=== PATIENT | male | born 1960 | race Caucasian/White ===

== ENCOUNTER 2016-10-02 06:40 | Inpatient (IN) | payer MEDICARE ==
[2016-10-02] VITALS (13 sets, daily range): BP systolic 108–150; BP diastolic 68–97
[~2016-10-02] VITALS: Ht 166.4 cm; Wt 108.9 kg
[~2016-10-02 06:40] MED LIST: ASPI1TAB55 PO; ATEN50TA PO; CITA20TA5 PO; GLUC1CAP57 PO; INSU100C4 SQ; INSU100V8 SQ; LEVO200T5 PO; LEVO750T31 PO; LISI-334 PO; METR500T8 PO; MULT-658 PO; PREG150C PO; SIMV20TA3 PO
[2016-10-02] MEDS ORDERED: PROAIR HFA8.5 GM INH (07:25)
[2016-10-02] MEDS ORDERED: CITA20TA9 PO (07:25)
[2016-10-02] MEDS ORDERED: LEVO200T5 PO (07:25)
[2016-10-02 07:49] LABS: HEMATOCRIT 49.3 % (39.0-53.0); HEMOGLOBIN 16.8 g/dL (13.0-17.5); RED BLOOD COUNT 5.15 x10^6/uL (4.30-5.70); WHITE BLOOD COUNT 12.5 x10^3/uL (4.0-11.0)
[2016-10-02 08:01] LABS: PROTHROMBIN TIME PATIENT 12.5 SEC (11.7-14.0)
[2016-10-02 08:33] LABS: CREATININE 1.4 mg/dL (0.7-1.3); GFR 52.2; POTASSIUM 4.3 mmol/L (3.5-5.1)
[2016-10-02] MEDS ORDERED: ASPI-630 PO (08:46)
[2016-10-02] MEDS ORDERED: HEPARIN for ARTERIAL LINE 1,500 ML ONE (08:48)
[2016-10-02] MEDS ORDERED: LIDOCAINE 2% 20 ML VIAL. ONE (08:48)
[2016-10-02] MEDS ORDERED: IODIXANOL 320 MG/ML 100 ML VIAL. ONE ×2 (08:48→09:43)
[2016-10-02] MEDS ORDERED: MIDAZOLAM HCL/PF 5 MG/5 ML VIAL. ONE (09:08)
[2016-10-02] MEDS ORDERED: fentaNYL PF VIAL 250 MCG/5 ML VIAL ONE (09:08)
[2016-10-02] MEDS ORDERED: MIDAZOLAM HCL/PF 5 MG/5 ML VIAL. IV ONE (09:30)
[2016-10-02] MEDS ORDERED: fentaNYL PF VIAL 250 MCG/5 ML VIAL IV ONE (09:30)
[2016-10-02] MEDS ORDERED: LIDOCAINE 2% 20 ML VIAL. IJ ONE (09:30)
[2016-10-02] MEDS ORDERED: IODIXANOL 320 MG/ML 100 ML VIAL. IART ONE (09:30)
[2016-10-02] MEDS ORDERED: HEPARIN for IV BOLUS 10,000 UNIT/10 ML VIAL. ONE (09:54)
[2016-10-02] MEDS ORDERED: TIROFIBAN 12.5MG -0.9% NS 250 ML IV ONE ×2 (10:10→10:15)
[2016-10-02] MEDS ORDERED: NITROGLYCERIN 200 MCG/2 ML SYRINGE FOR CATH/VASC LAB. IART ONE (10:15)
[2016-10-02] MEDS ORDERED: HEPARIN for IV BOLUS 10,000 UNIT/10 ML VIAL. IV ONE (10:15)
[2016-10-02] MEDS ORDERED: PRASUGREL 10 MG TABLET. PO ONE (10:30)
[2016-10-02] MEDS ORDERED: INSULIN ASPART 300 UNITS/3 ML INSULN.PEN SQ SCH (12:15)
--- NOTE | 2016-10-02 16:49 | CARD ---
APPROVED REPORT Procedure(s) performed: Moderate sedation: 100 min Left heart cath with coronary angiogram PCI of the LAD HISTORY The patient is a 56 year-old male with a history of : diabetes mellitus with treatment, tobacco histo ry() , hypertension, dyslipidemia. INDICATION The indication(s) include : unstable angina . PROCEDURE NARRATIVE After appropriate informed consent the patient was brought to the catheterization laboratory and plac ed in the supine position. The left groin was prepped and draped in usual sterile fashion. Under 2% l idocaine local anesthesia after conscious sedation a 5 [place] sheath was placed in the left common fe moral artery via the modified Seldinger technique. Right and left coronary angiography was performed with a JL4 and JR4 catheter. Findings: Aorta: 120/82 LVEDP: 10 Coronary angiography: The left main is very short caliber vessel with near separate ostia of the LAD and circumflex. The left anterior dissenting artery is a moderate to large caliber vessel with a proximal to mid 50-7 0% stenosis. There is also an apical 50% stenosis noted. The first diagonal is a moderate caliber vessel without any significant disease The circumflex is a large caliber dominant vessel with a mid 30% stenosis. First obtuse marginal is a large caliber vessel with no significant disease The left posterior descending artery is a large caliber vessel with mild diffuse irregularities. Interventional technique: Due to the patient's symptoms of unstable angina he underwent a functional study to assess for ischem ia of the left injured setting artery territory in light of his moderate to severe disease. The left- sided 5 [place] sheath was then exchanged for a 6 [place] sheath over a J-tipped guidewire. Heparin was used frantic regulation to achieve and maintain an ACT greater than 200. Through a JL4 guide cathete r a 0.014 inch Trac Emc [employer] Safety pressure wire was advanced to the distal LAD. Initial IFR measurement was note d to be 0.86. Given the positive nature of this study and intervention was performed on the LAD. Ball oon angioplasty of the proximal LAD was performed with a 2.5 x 50 mm balloon. The lesion was then ed nted with a 3.0 x 15 mm drug-eluting stent. Post stent insertion a repeat IFR measurement was persist ently 0.86 suggestive of more distal stenosis and therefore a 3.0 x 28 mm stent was then deployed in overlapping fashion across the mid LAD. Repeat IFR measurement was normalized to 0.95. The overlap se gment and the proximal aspect of the LAD stent was angioplastied with a noncompliant 3.5 x 15 mm ball oon. The patient tolerated the procedure well. The left groin was then closed with a 6 [place] Angio-S eal device. The patient received 60 mg of Effient at case completion. Conclusion 1. One-vessel coronary artery disease involving the proximal to mid LAD. 2. Positive functional study with a IFR measurement of 0.86 across the proximal to mid LAD. 3. Successful PCI of the proximal to mid LAD with overlapping Xience 3.0 x 15 and 28 mm, post-dilated to 3.5 mm size. Recommendations ASA 81mg daily Prasugrel 10mg daily and then transition to Plavix 75mg daily Cardiac rehab referral.
[2016-10-02] MEDS: INSULIN ASPART 300 UNITS/3 ML INSULN.PEN SQ SCH (17:28)
[2016-10-02] MEDS ORDERED: INSULIN DETEMIR 300 UNITS/3 ML INSULN.PEN. SQ SCH (21:00)
[2016-10-03 03:05] VITALS: BP 95/67
[2016-10-03 07:00] VITALS: BP 94/64
[2016-10-03] MEDS ORDERED: LEVOTHYROXINE 100 MCG TABLET PO SCH (07:00)
[2016-10-03] MEDS: INSULIN ASPART 300 UNITS/3 ML INSULN.PEN SQ SCH (08:39)
[2016-10-03] MEDS ORDERED: CITALOPRAM 20 MG TABLET. PO SCH (09:00)
[2016-10-03] MEDS ORDERED: ASPIRIN CHEWABLE 81 MG TABLET. PO SCH (09:00)
[2016-10-03] MEDS ORDERED: ATENOLOL 50 MG TABLET. PO SCH (09:00)
[2016-10-03] MEDS ORDERED: PRAS10TA9 PO (10:38)
--- NOTE | 2016-10-03 10:44 | DISCH ---
DISCHARGE INSTRUCTIONS Condition on Discharge Condition on Discharge: Stable Activity After Discharge Activity Instructions for Disc: Activity as tolerated, Avoid exertion Bathing Instructions: Shower-keep dressing dry Lifting Instructions after Dis: No heavy lifting, No pulling or pushing, Do not lift >10 pounds Driving Instructions after Dis: Do not drive (4-5 days ) Diet after Discharge Diet after Discharge: Cardiac Contacting the DRDevin after DC Call your doctor for: Concerns you may have ALIDA BOO APRN Oct 03, 2016 10:44
[2016-10-03] MEDS ORDERED: PRASUGREL 10 MG TABLET. PO SCH (11:00)
--- NOTE | 2016-10-03 15:50 | PDOC3 ---
ALIDA BOO DIESEL ROLLER OPERATOR 10/03/16 1550: Discharge Summary Visit Information Date of Admission: Oct 02, 2016 Date of Discharge: Oct 03, 2016 Admitting Diagnosis: Unstable angina Final Diagnosis Coronary artery disease Brief Hospital Course Allergies Allergies Coded Allergies Type Severity Reaction Last Updated Verified No Known Drug Allergies 09/11/14 No Vital Signs Vital Signs Date Time Temp Pulse Resp B/P (MAP) Pulse Ox O2 Delivery O2 Flow Rate FiO2 10/03/16 08:37 72 10/03/16 08:00 Room Air 10/03/16 07:00 97.7 18 94/64 (74) 93 97.7 10/02/16 10:58 2.0 Lab Results Laboratory Tests Test 10/02/16 07:45 10/02/16 11:51 10/02/16 16:30 10/02/16 20:58 White Blood Count 12.5 x10^3/uL (4.0-11.0) Red Blood Count 5.15 x10^6/uL (4.30-5.70) Hemoglobin 16.8 g/dL (13.0-17.5) Hematocrit 49.3 % (39.0-53.0) Mean Corpuscular Volume 96 fL (79-100) Mean Corpuscular Hemoglobin 33 pg (25-35) Mean Corpuscular Hemoglobin Concent 34 g/dL (31-37) Red Cell Distribution Width 14.0 % (11.5-14.5) Platelet Count 267 x10^3/uL (140-400) Prothrombin Time 12.5 SEC (11.7-14.0) Prothromb Time International Ratio 1.0 (0.8-1.1) Activated Partial Thromboplast Time 30 SEC (24-38) Sodium Level 134 mmol/L (136-145) Potassium Level 4.3 mmol/L (3.5-5.1) Chloride Level 97 mmol/L (98-107) Carbon Dioxide Level 30 mmol/L (21-32) Anion Gap 7 (6-14) Blood Urea Nitrogen 26 mg/dL (8-26) Creatinine 1.4 mg/dL (0.7-1.3) Estimated GFR (Cockcroft-Gault) 52.2 Glucose Level 296 mg/dL (70-99) Calcium Level 10.0 mg/dL (8.5-10.1) Glucose (Fingerstick) 277 mg/dL (70-99) 266 mg/dL (70-99) 267 mg/dL (70-99) Test 10/03/16 07:25 Glucose (Fingerstick) 135 mg/dL (70-99) Laboratory Tests Test 10/02/16 16:30 10/02/16 20:58 10/03/16 07:25 Glucose (Fingerstick) 266 mg/dL (70-99) 267 mg/dL (70-99) 135 mg/dL (70-99) Brief Hospital Course Mr. Arzate is a 56 old male who presented secondary to unstable angina. Brought electively to the catheterization laboratory. Cath revealed one-vessel coronary artery disease involving the proximal to mid LAD. Patient underwent successful PCI of the proximal to mid LAD with overlapping Xience 3.0 x 15 and 28 mm, post- dilated to 3.5 mm size. Tolerated well. Monitored overnight. No acute events noted overnight on telemetry. Lungs CTA. Left groin arteriotomy site soft, clean , and dry without erythema or ecchymosis. LLE neurovascular status intact. Initiated on DAPT with ASA and Effient with plan to transition to ASA and Plavix in one month. Patient to follow up in our office with Dr. Beard in 4 weeks. Discharge Information Condition at Discharge: Stable Follow Up: Weeks (4) Disposition/Orders: D/C to Home Scheduled Aspirin (Aspirin), 1 TAB PO DAILY, (Reported) Atenolol (Atenolol), 1 TAB PO DAILY, (Reported) Citalopram Hydrobromide (Celexa), 1 TAB PO DAILY, (Reported) Insulin Aspart (Novolog), 35 UNIT SQ TIDAC, (Reported) Insulin Glargine,Hum.rec.anlog (Lantus), 30 UNIT SQ HS, (Reported) Levothyroxine Sodium (Levothyroxine Sodium), 1 TAB PO DAILY, (Reported) Prasugrel Hcl (Effient), 1 TAB PO DAILY Simvastatin (Simvastatin), 1 TAB PO QHS, (Reported) Scheduled PRN Albuterol Sulfate (Proair Hfa Inhaler), 1 PUFF INH PRN Q6HRS PRN for SHORTNESS OF BREATH, (Reported) Miscellaneous Medications Aspirin/Sod Bicarb/Citric Acid (Katie-Monona Original Tab Eff), 1 EACH PO, ( Reported) Multivits-Min/Fa/Lycopene/Lut (Centrum Silver Tablet), 1 EACH PO, (Reported) Discontinued Medications Levofloxacin (Levaquin), 750 MG PO BID, (Reported) Levothyroxine Sodium (Levothyroxine Sodium), 1 TAB PO DAILY, (Reported) Lisinopril (Lisinopril), 1 TAB PO DAILY, (Reported) Metronidazole (Metronidazole), 500 MG PO TID, (Reported) Pregabalin (Lyrica), 1 CAP PO BID, (Reported) BLAIR BEARD MD 10/03/16 2509: Discharge Summary Brief Hospital Course Brief Hospital Course Pt. seen and examined. Agree with above MEDICAL TRANSCRIPTIONIST note. No acute events overnight. L groin site is c/d/i. Tolerating medical therapy Discussed with patient's family. Ok to DC with f/u in 4 weeks for lower extremity angiography for further evaluation of claudication. Discharge Information Scheduled Aspirin (Aspirin), 1 TAB PO DAILY, (Reported) Atenolol (Atenolol), 1 TAB PO DAILY, (Reported) Citalopram Hydrobromide (Celexa), 1 TAB PO DAILY, (Reported) Insulin Aspart (Novolog), 35 UNIT SQ TIDAC, (Reported) Insulin Glargine,Hum.rec.anlog (Lantus), 30 UNIT SQ HS, (Reported) Levothyroxine Sodium (Levothyroxine Sodium), 1 TAB PO DAILY, (Reported) Prasugrel Hcl (Effient), 1 TAB PO DAILY Simvastatin (Simvastatin), 1 TAB PO QHS, (Reported) Scheduled PRN Albuterol Sulfate (Proair Hfa Inhaler), 1 PUFF INH PRN Q6HRS PRN for SHORTNESS OF BREATH, (Reported) Miscellaneous Medications Aspirin/Sod Bicarb/Citric Acid (Katie-Monona Original Tab Eff), 1 EACH PO, ( Reported) Multivits-Min/Fa/Lycopene/Lut (Centrum Silver Tablet), 1 EACH PO, (Reported) Discontinued Medications Levofloxacin (Levaquin), 750 MG PO BID, (Reported) Levothyroxine Sodium (Levothyroxine Sodium), 1 TAB PO DAILY, (Reported) Lisinopril (Lisinopril), 1 TAB PO DAILY, (Reported) Metronidazole (Metronidazole), 500 MG PO TID, (Reported) Pregabalin (Lyrica), 1 CAP PO BID, (Reported) ALIDA BOO APRN Oct 03, 2016 15:50 BLAIR BEARD MD Oct 03, 2016 18:49
== END 2016-10-03 12:27 | disposition home or self-care (01) | DRG 247 ==
LOC: CCL 06:40 → 2 NORTH 10:24
PROVIDERS: ADMIT Internal Medicine Cardiovascular Disease; ATTEND Internal Medicine Cardiovascular Disease
PROC: 027035Z Dilation of Coronary Artery, One Artery with Two Drug-eluting Intraluminal Devices, Percutaneous Approach (ICD-10-PCS; principal; 2016-10-02)
PROC: 4A033BC Measurement of Arterial Pressure, Coronary, Percutaneous Approach (ICD-10-PCS; 2016-10-02)
PROC: B2111ZZ Fluoroscopy of Multiple Coronary Arteries using Low Osmolar Contrast (ICD-10-PCS; 2016-10-02)
DX: I25.110 Atherosclerotic heart disease of native coronary artery with unstable angina pectoris (principal); E11.9 Type 2 diabetes mellitus without complications; I10 Essential (primary) hypertension; E78.5 Hyperlipidemia, unspecified; Z79.4 Long term (current) use of insulin; Z79.899 Other long term (current) drug therapy; Z87.891 Personal history of nicotine dependence
CPT/HCPCS: 36415; 80048; 82962; 85027; 85610; 85730; 92928; 93458; 93571; 99152; 99153; 99406; C1713; C1725; C1769; C1771; C1887; C1892; G0269; J1644; J1815; J2001; J2250; J3010; J3490; J3246

== ENCOUNTER 2016-11-10 08:58 | Outpatient (CLI) | payer MEDICARE ==
[2016-11-10] VITALS (8 sets, daily range): BP systolic 101–135; BP diastolic 71–88
[~2016-11-10] VITALS: Ht 167.6 cm; Wt 102.1 kg
[~2016-11-10 08:58] MED LIST changes: +ASPI-630 PO; +CITA20TA9 PO; +PRAS10TA9 PO; +PROAIR HFA8.5 GM INH
[2016-11-10] MEDS ORDERED: CLOP75TA PO (09:26)
[2016-11-10 09:38] LABS: CALCIUM 8.4 mg/dL (8.5-10.1); CREATININE 1.2 mg/dL (0.7-1.3); GFR 62.4; POTASSIUM 3.7 mmol/L (3.5-5.1)
[2016-11-10 09:40] LABS: HEMATOCRIT 46.8 % (39.0-53.0); HEMOGLOBIN 16.8 g/dL (13.0-17.5); RED BLOOD COUNT 5.05 x10^6/uL (4.30-5.70); WHITE BLOOD COUNT 9.4 x10^3/uL (4.0-11.0)
[2016-11-10 09:53] LABS: PROTHROMBIN TIME PATIENT 12.4 SEC (11.7-14.0)
[2016-11-10] MEDS ORDERED: IODIXANOL 320 MG/ML 100 ML VIAL. ONE (10:26)
[2016-11-10] MEDS ORDERED: LIDOCAINE 2% 20 ML VIAL. ONE (10:28)
[2016-11-10] MEDS ORDERED: fentaNYL PF VIAL 250 MCG/5 ML VIAL ONE (10:51)
[2016-11-10] MEDS ORDERED: MIDAZOLAM HCL/PF 5 MG/5 ML VIAL. ONE (10:51)
[2016-11-10] MEDS ORDERED: HEPARIN for IV BOLUS 10,000 UNIT/10 ML VIAL. ONE (11:06)
[2016-11-10] MEDS ORDERED: fentaNYL PF VIAL 250 MCG/5 ML VIAL IV ONE (11:15)
[2016-11-10] MEDS ORDERED: MIDAZOLAM HCL/PF 5 MG/5 ML VIAL. IV ONE (11:15)
[2016-11-10] MEDS ORDERED: IODIXANOL 320 MG/ML 100 ML VIAL. IART ONE (11:15)
[2016-11-10] MEDS ORDERED: NITROGLYCERIN 200 MCG/2 ML SYRINGE FOR CATH/VASC LAB. IART ONE (11:30)
[2016-11-10] MEDS ORDERED: HEPARIN for IV BOLUS 10,000 UNIT/10 ML VIAL. IV ONE (11:30)
[2016-11-10] MEDS ORDERED: LIDOCAINE 2% 20 ML VIAL. IJ ONE (11:30)
[2016-11-10] MEDS ORDERED: CONTRAST GIVEN MC PRN (11:30)
[2016-11-10] MEDS ORDERED: NITROGLYCERIN 200 MCG/2 ML SYRINGE FOR CATH/VASC LAB. ONE (11:37)
[2016-11-10] MEDS ORDERED: CLOPIDOGREL BISULFATE 75 MG TABLET ONE ×2 (12:01→12:19)
[2016-11-10] MEDS ORDERED: CLOPIDOGREL BISULFATE 75 MG TABLET PO ONE (12:45)
[2016-11-10] MEDS ORDERED: INSULIN ASPART 300 UNITS/3 ML INSULN.PEN SQ SCH (13:00)
--- NOTE | 2016-11-10 14:24 | CARD ---
APPROVED REPORT Procedure(s) performed: SEDATION TIME: 68 MINUTES Abdominal aortogram Bilateral lower extremity run-off SAMMYING MACHINE OPERATOR of the TP trunk SAMMYING MACHINE OPERATOR of the proximal posterior tibial artery HISTORY The patient is a 56 year-old male with a history of : diabetes mellitus with treatment, coronary kieran ry disease, previous PCI (The PCI date was ), hypertension, dyslipidemia. INDICATION The indication(s) include : Bilateral claudication with lifestyle limiting symptoms. . CASE TECHNIQUE During this case, Fluoroscopy and low osmolar contrast were used for imaging. PROCEDURE NARRATIVE After appropriate informed consent the patient was brought to the catheterization laboratory. The lef t groin was prepped and draped in usual sterile fashion. Under 2% lidocaine local anesthesia a 5 Fren ch sheath was placed in the left common femoral artery under fluoroscopic guidance with a 18-gauge ne edle and a J-tipped guidewire via the modified Seldinger technique. Next, a [address] was advanced to the abdominal aorta and digital subtraction angiography was performed of the aort a and iliac vessels. Subsequent only, a J-tipped guidewire is placed in the right common femoral kieran ry with the aid of the Omni Flush catheter and the catheter was exchanged for a 4 Serbian angled glide catheter and selective right lower extremity angiography was performed. Subsequently an intervention was performed in the right lower cavity and finally prior to removal of the sheath on the left side a left lower summary angiography and runoff was performed. FINDINGS: Aorta: No significant disease. RCIA: No significant disease. RIIA: Mild luminal irregularities. REIA: No significant disease. RCFA: No significant disease. RPROF: No significant disease. RSFA: No significant disease. RAT: No significant disease. RTP trunk: 80% stenosis prior to peroneal and PT bifurcation RPT: Proximal 80% stenosis. There is diffuse mid 50% stenosis. RPER: No signifiant disease. LCIA: Proximal 20% stenosis. LIIA: Mild luminal irregularities. AB: No significant disease. LCFA: No significant disease. LPROF: No significant disease. LSFA: No significant disease. LAT: No significant disease. LTP trunk: Mild diffuse disease. LPT: Proximally occluded. LPER: Not well visualized. INTERVENTIONAL TECHNIQUE: Based on the patient's symptoms of [place] category 3 claudication and angina graphic findings of significant tibia peroneal and posterior tibial stenosis and intervention was performed. Heparin weig ht-based bolus dosing was used to achieve and maintain an ACT greater than 200. The patient was Arty on aspirin and Plavix. The left-sided 5 Serbian sheath was exchanged for a 6 Serbian Rajiv sheath. Next , a 0.014 inch 300 cm, and wire was used to traverse the stenosis and was placed in the distal spray maker ior tibial artery. Next a 3.0 x 40 mm balloon was used to angioplasty the lesion extending from the t ibial peroneal trunk into the proximal posterior tibial vessel. Next, a Datamolinotronic admiral paclitaxel coated 4.0 x 40 mm balloon was used to angioplasty the vessel with resolution of the stenosis to less than 30% and no evidence of dissection with good antegrade flow. Given good angina graphic result fu rther intervention was deferred. The patient tolerated the procedure well and the left-sided sheath w as removed and a pre-close device was placed for hemostasis. The patient was given an additional 300 mg of Plavix at case completion. Conclusion 1. [place] category 3 claudication 2. 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 3. Successful POBA with a [place] 3.0 mm balloon followed by a drug-coated Admiral 4.0 x 40 mm balloon with good results in the R TP trunk/PT vessels. Recommendations Smoking Cessation Aggressive Medical Therapy Walking program.
== END 2016-11-10 14:30 | disposition home or self-care (01) ==
LOC: CCL 08:58
PROVIDERS: ATTEND Internal Medicine Cardiovascular Disease
DX: I70.213 Atherosclerosis of native arteries of extremities with intermittent claudication, bilateral legs (principal); I10 Essential (primary) hypertension; E78.5 Hyperlipidemia, unspecified; I25.10 Atherosclerotic heart disease of native coronary artery without angina pectoris; E78.00 Pure hypercholesterolemia, unspecified; J44.9 Chronic obstructive pulmonary disease, unspecified; M19.90 Unspecified osteoarthritis, unspecified site; E03.9 Hypothyroidism, unspecified; E11.9 Type 2 diabetes mellitus without complications; F17.200 Nicotine dependence, unspecified, uncomplicated; Z86.39 Personal history of other endocrine, nutritional and metabolic disease; Z86.14 Personal history of Methicillin resistant Staphylococcus aureus infection; Z86.69 Personal history of other diseases of the nervous system and sense organs; Z79.01 Long term (current) use of anticoagulants
CPT/HCPCS: 36415; 37228; 75630; 80048; 85027; 85610; 85730; 99152; 99153; C1725; C1769; C1771; C1892; C2623; J1644; J1815; J2001; J2250; J3010; J3490; Q9967; 37232; G0269

== ENCOUNTER → 2017-04-24 | Outpatient (CLI) | payer MEDICARE | END | disposition home or self-care (01) | LOC: US 15:26 | DX: M79.604 Pain in right leg (principal); M79.89 Other specified soft tissue disorders; R53.83 Other fatigue; R60.0 Localized edema | CPT/HCPCS: 71046; 93971 ==

== ENCOUNTER → 2018-04-27 | Outpatient (CLI) | payer MEDICARE ==
[2017-08-25 11:00] VITALS: BP 99/66
[~2018-04-27] MED LIST changes: +ALBU2.5V8 INH; -CITA20TA5 PO; +CITA20TA6 PO; +CLOP75TA PO; +GABA300C18 PO; +HYDR-2765 PO; +INSU100I11 SQ; +INSU100I13 SQ; +INSU100I30 SQ; +LIDO700A39 TD; +METR-84 PO; -METR500T8 PO; -PROAIR HFA8.5 GM INH; +VALA500T PO
--- NOTE | 2018-04-27 09:28 | RAD ---
MR#: [id number] Date of Study: 04/27/2018 Ordering Physician: BLAIR AZUL, Referring Physician: BLAIR AZUL, Tech: Donovan Ceballos MBA, RDMS, RVT, RDCS, RTR APPROVED REPORT Patient Location: OUT-PATIENT Indications PAD VELOCITY AND DOPPLER WAVEFORM ANALYSIS RIGHT cm/secWaveformSeverity LEFT cm/secWaveform Severity dCFA 122.0TriphasicdCFA 137.0Triphasic Prof Fem Art. 52.0BiphasicProf Fem Art. 48.0Biphasic Fem Art Prox. 73.0TriphasicFem Art Prox. 81.0Triphasic Fem Art Mid. 64.0TriphasicFem Art Mid. 80.0Triphasic Fem Art Dist. 65.0TriphasicFem Art Dist. 70.0Triphasic Pop Art(Fossa) 66.0TriphasicPop Art(AK) 79.0Triphasic AMMONIA REFRIGERATION WORKER Prox. 29.0BiphasicPTA Prox. 21.0Monophasic AMMONIA REFRIGERATION WORKER Dist. 14.0BiphasicPTA Dist. 21.0Monophasic ASHLEY Prox. 47.0TriphasicATA Prox. 48.0Triphasic DPA 52TriphasicDPA 56Biphasic Findings Grayscale images of the bilateral lower extremity arterial vessels reveal no obstructive plaque above the knee. Below the knee there is diffuse atherosclerosis noted. There are mostly triphasic and biph asic waveforms from the common femoral artery to the popliteal segment. Velocities are within normal limits in the segments. Below the knee on the right side the peroneal artery is likely occluded. There are diminished wavefor ms in the posterior tibial artery likely related to diffuse disease. The anterior tibial artery has n ormal triphasic waveforms extending all the way to dorsalis pedis level. On the left the posterior tibial artery again is monophasic with diminished waveforms suggestive of d iffuse disease. The peroneal artery is not visualized. The anterior tibial artery has triphasic wavef orms with normal velocity profiles. Critical Notification Critical Value: No <Conclusion> 1. No significant above-knee disease. 1 vessel runoff below the knee bilaterally. Signed by : Blair Azul, Electronically Approved : 04/27/2018 09:26:18
== END | disposition home or self-care (01) ==
LOC: US 06:43
PROVIDERS: ATTEND Internal Medicine Cardiovascular Disease
DX: I70.293 Other atherosclerosis of native arteries of extremities, bilateral legs (principal)
CPT/HCPCS: 93925

== ENCOUNTER → 2018-07-05 | Outpatient (CLI) | payer MEDICARE ==
[2017-08-25 11:00] VITALS: BP 99/66
[~2018-07-05] MED LIST changes: +METR-34 PO; -METR-84 PO
--- NOTE | 2018-07-05 14:27 | KCIC ---
EXAM: Right hip, 2 views. HISTORY: Pain. COMPARISON: None. FINDINGS: 2 views the right hip are obtained. There is no fracture, dislocation or subluxation. IMPRESSION: No acute osseous finding. Electronically signed by: Verenice Cleveland MD (07/05/2018 2:24 PM) [id number]
--- NOTE | 2018-07-05 14:27 | KCIC ---
EXAM: Lumbar spine, 5 views. HISTORY: Pain. COMPARISON: None. FINDINGS: Frontal, lateral, bilateral oblique and coned sacral views of the lumbar spine are obtained. There is mild retrolisthesis of L2 on L3 and L3 on L4. There is degenerative endplate remodeling at all lumbar levels. There is facet arthropathy predominantly at the lower lumbar levels. No fracture is seen. IMPRESSION: 1. Multilevel degenerative change. 2. No acute osseous finding. Electronically signed by: Verenice Celveland MD (07/05/2018 2:24 PM) [id number]
== END | disposition home or self-care (01) ==
LOC: KCIC 11:24
PROVIDERS: ATTEND Family Medicine
DX: M47.816 Spondylosis without myelopathy or radiculopathy, lumbar region (principal); M12.88 Other specific arthropathies, not elsewhere classified, other specified site
CPT/HCPCS: 72110; 73502